=== PATIENT | female | born 1940 | race Caucasian/White ===

== ENCOUNTER 2017-08-12 10:58 | Outpatient (CLI) | payer MEDICARE ==
[2017-08-12 12:19] LABS: Anion Gap 13 mmol/L (10-20); BUN (Urea Nitrogen) 18 mg/dL (9.8-20.1); Calc. Creatinine Clearance 0 mL/min (70-130); Calcium 9.1 mg/dL (7.8-10.44); Carbon Dioxide 22 mmol/L (23-31); Chloride 108 mmol/L (98-107); Estimated GFR-MDRD 46; Glucose 87 mg/dL (83-110); Potassium 3.8 mmol/L (3.5-5.1); Sodium 139 mmol/L (136-145)
[2017-08-12 14:22] LABS: Bilirubin Negative (Negative); Blood, Urine Small (Negative); Clarity Clear (Clear); Glucose, Urine (Dipstick) Negative (Negative); Leukocyte Negative (Negative); Nitrite Negative (Negative); Protein, Urine (Dipstick) Negative (Neg-Trace); Urobilinogen 0.2 mg/dL (0.2-1.0); pH, Urine 5.5 (5.0-9.0)
[2017-08-12 14:23] LABS: RBC/HPF 0-3 HPF (0-3); Specific Gravity, Urine 1.009 (1.002-1.036)
[2017-08-12 14:29] LABS: Bacteria/HPF Rare-Few HPF (None Seen); Squamous Epithelial 0-3 HPF (0-3); WBC/HPF None Seen HPF (0-3)
== END 2017-08-12 10:59 | disposition home or self-care (01) ==
LOC: MADLAB 10:58
PROVIDERS: ATTEND Urology
DX: N39.0 Urinary tract infection, site not specified (principal); N28.1 Cyst of kidney, acquired; N95.2 Postmenopausal atrophic vaginitis
CPT/HCPCS: 36415; 80048; 81001; 87086

== ENCOUNTER 2017-12-29 16:10 | Outpatient (CLI) | payer MEDICARE ==
[2017-12-29 17:21] LABS: Bilirubin Negative (Negative); Blood, Urine Small (Negative); Glucose, Urine (Dipstick) Negative (Negative); Leukocyte Negative (Negative); Nitrite Negative (Negative); Protein, Urine (Dipstick) Negative (Neg-Trace); Specific Gravity, Urine 1.015 (1.005-1.030); Urobilinogen 0.2 mg/dL (0.2-1.0)
[2017-12-29 17:42] LABS: Clarity Hazy (Clear)
[2017-12-29 17:43] LABS: Bacteria/HPF Rare-Few HPF (None Seen); Squamous Epithelial None Seen HPF (0-3); WBC/HPF None Seen HPF (0-3)
== END 2017-12-29 16:11 | disposition home or self-care (01) ==
LOC: MADLAB 16:10
PROVIDERS: ATTEND Urology
DX: N39.0 Urinary tract infection, site not specified (principal)
CPT/HCPCS: 87086

== ENCOUNTER 2018-05-01 10:54 | Outpatient (CLI) | payer MEDICARE ==
[2018-05-01 11:24] LABS: Hemoglobin 11.9 g/dL (12.0-16.0)
[2018-05-01 11:42] LABS: Anion Gap 15 mmol/L (10-20); BUN (Urea Nitrogen) 28 mg/dL (9.8-20.1); Calc. Creatinine Clearance 0 mL/min (70-130); Calcium 9.6 mg/dL (7.8-10.44); Carbon Dioxide 22 mmol/L (23-31); Chloride 106 mmol/L (98-107); Estimated GFR-MDRD 48; Glucose 92 mg/dL (83-110); Phosphorus 3.9 mg/dL (2.3-4.7); Potassium 4.4 mmol/L (3.5-5.1); Sodium 139 mmol/L (136-145)
[2018-05-01 18:05] LABS: Creatinine, Urine 78.98 mg/dL (47-110)
== END 2018-05-01 10:55 | disposition home or self-care (01) ==
LOC: MADLAB 10:54
PROVIDERS: ATTEND Internal Medicine Nephrology
DX: I12.9 Hypertensive chronic kidney disease with stage 1 through stage 4 chronic kidney disease, or unspecified chronic kidney disease (principal); N18.3 Chronic kidney disease, stage 3 (moderate); E55.9 Vitamin D deficiency, unspecified; Q61.9 Cystic kidney disease, unspecified
CPT/HCPCS: 36415; 80048; 82306; 82570; 83970; 84100; 84156; 85014; 85018

== ENCOUNTER 2021-05-17 13:12 | Inpatient (IN) | payer MEDICARE ==
[2021-05-17 14:35] VITALS: BMI 21.3
[2021-05-17] MEDS ORDERED: Bisacodyl 5 MG TAB PO PRN (17:16)
[2021-05-17] MEDS ORDERED: Zolpidem Tartrate 5 MG TAB PO PRN (17:16)
[2021-05-17] MEDS: Famotidine 20 MG TAB PO SCH (21:18)
[2021-05-17] MEDS: Atorvastatin Calcium 40 MG TAB PO SCH (21:18)
[2021-05-17] MEDS: Dicyclomine 10 MG CAP PO SCH (21:18)
[2021-05-17] MEDS: Metoprolol Tartrate 50 MG TAB PO SCH (21:18)
[2021-05-17] MEDS: hydrALAZINE 25 MG TAB PO SCH (21:19)
[2021-05-18] MEDS: Levothyroxine Sodium 125 MCG TAB PO SCH (05:24)
[2021-05-18] MEDS ORDERED: Levothyroxine Sodium 112 MCG TAB PO SCH (06:00)
[2021-05-18] MEDS: Metoprolol Tartrate 50 MG TAB PO SCH ×2 (09:42→21:44)
[2021-05-18] MEDS: hydrALAZINE 25 MG TAB PO SCH ×3 (09:42→21:44)
[2021-05-18] MEDS: Anastrozole 1 MG TAB PO SCH (09:42)
[2021-05-18] MEDS: Polyethylene Glycol 3350 17 GM Packet PO SCH (09:42)
[2021-05-18] MEDS: Senokot S 8.6-50 MG TAB PO PRN (09:42)
[2021-05-18] MEDS: Aspirin 81 mg Enteric Coated Tablet PO SCH (09:42)
[2021-05-18] MEDS: Amlodipine 5 MG TAB PO SCH (09:43)
[2021-05-18] MEDS: Dicyclomine 10 MG CAP PO SCH ×3 (09:43→21:44)
[2021-05-18] MEDS: Famotidine 20 MG TAB PO SCH ×2 (09:45→21:45)
[2021-05-18] MEDS: Atorvastatin Calcium 40 MG TAB PO SCH (21:44)
[2021-05-19] MEDS: Levothyroxine Sodium 125 MCG TAB PO SCH (05:50)
[2021-05-19] MEDS: Famotidine 20 MG TAB PO SCH ×2 (09:21→21:28)
[2021-05-19] MEDS: Metoprolol Tartrate 50 MG TAB PO SCH ×2 (09:21→21:28)
[2021-05-19] MEDS: Dicyclomine 10 MG CAP PO SCH ×3 (09:22→21:28)
[2021-05-19] MEDS: Aspirin 81 mg Enteric Coated Tablet PO SCH (09:22)
[2021-05-19] MEDS: Polyethylene Glycol 3350 17 GM Packet PO SCH (09:22)
[2021-05-19] MEDS: Amlodipine 5 MG TAB PO SCH (09:22)
[2021-05-19] MEDS: Anastrozole 1 MG TAB PO SCH (09:22)
[2021-05-19] MEDS: hydrALAZINE 25 MG TAB PO SCH ×3 (09:30→21:28)
[2021-05-19] MEDS: Senokot S 8.6-50 MG TAB PO PRN (09:30)
[2021-05-19] MEDS: Atorvastatin Calcium 40 MG TAB PO SCH (21:28)
[2021-05-20] MEDS: Ondansetron ODT 4 MG TAB PO PRN (00:45)
[2021-05-20] MEDS: Levothyroxine Sodium 125 MCG TAB PO SCH (05:41)
[2021-05-20] MEDS: Dicyclomine 10 MG CAP PO SCH ×3 (08:50→21:29)
[2021-05-20] MEDS: Amlodipine 5 MG TAB PO SCH (08:50)
[2021-05-20] MEDS: Famotidine 20 MG TAB PO SCH ×2 (08:50→21:29)
[2021-05-20] MEDS: Aspirin 81 mg Enteric Coated Tablet PO SCH (08:50)
[2021-05-20] MEDS: Metoprolol Tartrate 50 MG TAB PO SCH ×2 (08:50→21:29)
[2021-05-20] MEDS: Polyethylene Glycol 3350 17 GM Packet PO SCH (08:51)
[2021-05-20] MEDS: Anastrozole 1 MG TAB PO SCH (08:51)
[2021-05-20] MEDS: hydrALAZINE 25 MG TAB PO SCH ×3 (08:51→21:29)
[2021-05-20] MEDS: Atorvastatin Calcium 40 MG TAB PO SCH (21:29)
[2021-05-21] MEDS: Levothyroxine Sodium 125 MCG TAB PO SCH (05:32)
[2021-05-21] MEDS: Aspirin 81 mg Enteric Coated Tablet PO SCH (09:18)
[2021-05-21] MEDS: Anastrozole 1 MG TAB PO SCH (09:18)
[2021-05-21] MEDS: Metoprolol Tartrate 50 MG TAB PO SCH ×2 (09:19→20:24)
[2021-05-21] MEDS: Famotidine 20 MG TAB PO SCH ×2 (09:19→20:23)
[2021-05-21] MEDS: hydrALAZINE 25 MG TAB PO SCH ×3 (09:19→20:24)
[2021-05-21] MEDS: Amlodipine 5 MG TAB PO SCH (09:19)
[2021-05-21] MEDS: Dicyclomine 10 MG CAP PO SCH ×3 (09:19→20:22)
[2021-05-21] MEDS: Polyethylene Glycol 3350 17 GM Packet PO SCH (09:20)
[2021-05-21] MEDS: Acetaminophen 325 MG TAB PO PRN (10:49)
[2021-05-21] MEDS: Atorvastatin Calcium 40 MG TAB PO SCH (20:22)
[2021-05-22] MEDS: Levothyroxine Sodium 125 MCG TAB PO SCH (05:26)
[2021-05-22] MEDS: Amlodipine 5 MG TAB PO SCH (08:58)
[2021-05-22] MEDS: Aspirin 81 mg Enteric Coated Tablet PO SCH (08:58)
[2021-05-22] MEDS: Dicyclomine 10 MG CAP PO SCH ×3 (08:58→20:47)
[2021-05-22] MEDS: Polyethylene Glycol 3350 17 GM Packet PO SCH (08:58)
[2021-05-22] MEDS: Metoprolol Tartrate 50 MG TAB PO SCH ×2 (08:58→20:47)
[2021-05-22] MEDS: hydrALAZINE 25 MG TAB PO SCH ×3 (08:58→20:47)
[2021-05-22] MEDS: Anastrozole 1 MG TAB PO SCH (08:59)
[2021-05-22] MEDS: Famotidine 20 MG TAB PO SCH ×2 (09:01→20:47)
[2021-05-22] MEDS: Acetaminophen 325 MG TAB PO PRN (14:11)
[2021-05-22] MEDS: Atorvastatin Calcium 40 MG TAB PO SCH (20:47)
[2021-05-23] MEDS: Levothyroxine Sodium 125 MCG TAB PO SCH (05:23)
[2021-05-23] MEDS: Aspirin 81 mg Enteric Coated Tablet PO SCH (08:51)
[2021-05-23] MEDS: Dicyclomine 10 MG CAP PO SCH ×3 (08:51→20:25)
[2021-05-23] MEDS: Famotidine 20 MG TAB PO SCH ×2 (08:51→20:25)
[2021-05-23] MEDS: Polyethylene Glycol 3350 17 GM Packet PO SCH (08:51)
[2021-05-23] MEDS: hydrALAZINE 25 MG TAB PO SCH ×3 (08:51→20:25)
[2021-05-23] MEDS: Anastrozole 1 MG TAB PO SCH (08:51)
[2021-05-23] MEDS: Metoprolol Tartrate 50 MG TAB PO SCH ×2 (08:51→20:26)
[2021-05-23] MEDS: Amlodipine 5 MG TAB PO SCH (08:51)
[2021-05-23] MEDS: Acetaminophen 325 MG TAB PO PRN (08:52)
[2021-05-23] MEDS: Senokot S 8.6-50 MG TAB PO PRN (16:59)
[2021-05-23] MEDS: Atorvastatin Calcium 40 MG TAB PO SCH (20:25)
[2021-05-24] MEDS: Levothyroxine Sodium 125 MCG TAB PO SCH (05:20)
[2021-05-24] MEDS: Metoprolol Tartrate 50 MG TAB PO SCH ×2 (08:02→20:29)
[2021-05-24] MEDS: Anastrozole 1 MG TAB PO SCH (08:02)
[2021-05-24] MEDS: Aspirin 81 mg Enteric Coated Tablet PO SCH (08:02)
[2021-05-24] MEDS: Famotidine 20 MG TAB PO SCH ×2 (08:02→20:27)
[2021-05-24] MEDS: hydrALAZINE 25 MG TAB PO SCH ×3 (08:02→20:28)
[2021-05-24] MEDS: Dicyclomine 10 MG CAP PO SCH ×3 (08:02→20:27)
[2021-05-24] MEDS: Amlodipine 5 MG TAB PO SCH (08:02)
[2021-05-24] MEDS: Polyethylene Glycol 3350 17 GM Packet PO SCH (08:03)
[2021-05-24] MEDS: Acetaminophen 325 MG TAB PO PRN (20:26)
[2021-05-24] MEDS: Atorvastatin Calcium 40 MG TAB PO SCH (20:27)
[2021-05-25] MEDS: Levothyroxine Sodium 125 MCG TAB PO SCH (05:42)
[2021-05-25] MEDS: Ondansetron ODT 4 MG TAB PO PRN (09:45)
[2021-05-25] MEDS: Famotidine 20 MG TAB PO SCH (10:14)
[2021-05-25] MEDS: Aspirin 81 mg Enteric Coated Tablet PO SCH (10:14)
[2021-05-25] MEDS: Metoprolol Tartrate 50 MG TAB PO SCH (10:15)
[2021-05-25] MEDS: Anastrozole 1 MG TAB PO SCH (10:15)
[2021-05-25] MEDS: Dicyclomine 10 MG CAP PO SCH ×2 (10:15→14:23)
[2021-05-25] MEDS: Acetaminophen 325 MG TAB PO PRN (10:16)
[2021-05-25] MEDS: hydrALAZINE 25 MG TAB PO SCH ×2 (10:19→14:21)
[2021-05-25] MEDS: Amlodipine 5 MG TAB PO SCH (10:19)
[2021-05-25] MEDS: Polyethylene Glycol 3350 17 GM Packet PO SCH (11:52)
[2021-05-25 14:21] VITALS: BP 126/64; TEMP 98.7
== END 2021-05-25 15:20 | disposition home or self-care (01) | DRG 948 ==
LOC: MADMS 14:04
PROVIDERS: ADMIT Family Medicine; ATTEND Family Medicine
DX: R53.81 Other malaise (principal); E03.9 Hypothyroidism, unspecified; I12.9 Hypertensive chronic kidney disease with stage 1 through stage 4 chronic kidney disease, or unspecified chronic kidney disease; N18.30 Chronic kidney disease, stage 3 unspecified; R51.9 Headache, unspecified; R42 Dizziness and giddiness; K59.01 Slow transit constipation; Z85.3 Personal history of malignant neoplasm of breast; Z92.21 Personal history of antineoplastic chemotherapy; Z92.3 Personal history of irradiation; Z90.10 Acquired absence of unspecified breast and nipple; Z88.0 Allergy status to penicillin; Z88.1 Allergy status to other antibiotic agents; Z79.82 Long term (current) use of aspirin; Z79.899 Other long term (current) drug therapy; Z86.73 Personal history of transient ischemic attack (TIA), and cerebral infarction without residual deficits; Z85.118 Personal history of other malignant neoplasm of bronchus and lung
CPT/HCPCS: Q0162